=== PATIENT | male | born 1995 | race African-American/Black ===

== ENCOUNTER 2018-10-12 19:32 | Emergency (ER) | payer MEDICAID ==
[~2018-10-12] VITALS: Ht 175.3 cm; Wt 89.4 kg
[2018-10-12 19:34] VITALS: BP 140/83
[2018-10-12] MEDS ORDERED: AZITHROMYCIN 250 MG TABLET PO ONE (20:00)
[2018-10-12] MEDS ORDERED: CEFTRIAXONE 250 MG IM ONE (20:00)
[2018-10-12] MEDS ORDERED: LIDOCAINE-MPF 1%, 2ML ONE (20:16)
[2018-10-12] MEDS ORDERED: AZITHROMYCIN 250 MG TABLET ONE (20:16)
[2018-10-12] MEDS ORDERED: CEFTRIAXONE 250 MG ONE (20:16)
== END 2018-10-12 20:37 | disposition home or self-care (01) ==
LOC: ED 20:31
DX: A54.01 Gonococcal cystitis and urethritis, unspecified (principal); A54.9 Gonococcal infection, unspecified
CPT/HCPCS: 96372; 99283; J0696

== ENCOUNTER 2019-02-24 08:43 | Emergency (ER) | payer MEDICAID ==
[~2019-02-24] VITALS: Ht 177.8 cm; Wt 88.0 kg
--- NOTE | 2019-02-24 08:57 | NUR ---
Pt presents for subjective fever and chills x 2 weeks, worse last night. Pt has LBP and cough. NAD at this time.
[2019-02-24 09:42] LABS: MEAN CORPUSCULAR HEMOGLOBIN 26.1 pg (27.5-34.5); MEAN CORPUSCULAR HGB CONC 32.6 g/dL (33.2-36.2); MEAN CORPUSCULAR VOLUME 79.9 fL (81-97); MEAN PLATELET VOLUME 8.5 fL (7.4-10.4); PLATELET COUNT 244 x10^3/uL (130-400); RED BLOOD COUNT 5.67 x10^6/uL (4.38-5.82); RED CELL DISTRIBUTION WIDTH 14.1 % (9.4-14.8)
[2019-02-24 09:59] LABS: ALBUMIN 3.6 g/dL (3.4-5.0); ANION GAP 9 mmol/L (5-15); CALCIUM 8.2 mg/dL (8.5-10.1); CHLORIDE 108 mmol/L (98-107)
[2019-02-24 10:00] LABS: CULTURE INDICATED? YES; MICROSCOPIC INDICATED
[2019-02-24 10:09] LABS: RAPID INFLUENZA A Negative (Negative); RAPID INFLUENZA B Negative (Negative)
[2019-02-24 10:13] LABS: MD YES
[2019-02-24 10:15] LABS: BAND#(MANUAL) 1.29 x10^3/uL; BANDS%(MANUAL) 7 % (0-7); LYMPH#(MANUAL) 1.66 x10^3/uL (1-3.4); LYMPHS% (MANUAL) 9 % (22-44); MONOS#(MANUAL) 1.29 x10^3/uL (0.3-2.7); MONOS% (MANUAL) 7 % (2-9); SEG#(MANUAL) 14.17 x10^3/uL (1.8-6.8); SEGS% (MANUAL) 77 % (42-75)
[2019-02-24 10:16] LABS: <PLATELET ESTIMATE> ADEQUATE; <PLT MORPHOLOGY> NORMAL PLT MORPH; <RBC MORPHOLOGY> NORMAL
[2019-02-24] MEDS ORDERED: CEFTRIAXONE 1,000 MG IM ONE (10:30)
[2019-02-24] MEDS ORDERED: CEFTRIAXONE 1,000 MG ONE (10:43)
[2019-02-24] MEDS ORDERED: LIDOCAINE-MPF 1%, 5ML ONE (10:43)
[2019-02-24 10:51] VITALS: BP 125/59
== END 2019-02-24 11:16 | disposition home or self-care (01) ==
LOC: ED 11:11
DX: N30.01 Acute cystitis with hematuria (principal)
CPT/HCPCS: 36415; 71046; 80048; 81001; 82040; 85025; 87086; 87400; 96372; 99284; J0696

== ENCOUNTER 2020-12-16 15:13 | Emergency (ER) | payer MEDICAID ==
[~2020-12-16] VITALS: Ht 175.3 cm; Wt 84.5 kg
--- NOTE | 2020-12-16 15:34 | NUR ---
JONATHAN HOLT AT BS NOW.
--- NOTE | 2020-12-16 15:35 | NUR ---
PT AMBULATED TO BR WITHOUT DIFFICULTY. INSTRUCTED ON CLEAN CATCH URINE SAMPLE.
[2020-12-16] MEDS ORDERED: KETOROLAC 30 MG/1 ML ONE (15:53)
[2020-12-16] MEDS ORDERED: KETOROLAC 30 MG/1 ML IM ONE (16:00)
[2020-12-16 16:15] LABS: MICROSCOPIC INDICATED
--- NOTE | 2020-12-16 16:26 | NUR ---
TASK RN: PT MEDICATED PER MAR.
[2020-12-16 16:46] LABS: BASOPHILS % (AUTO) 1 % (0-1); EOSINOPHILS % (AUTO) 1 % (1-7); LYMPHOCYTES % (AUTO) 17 % (22-44); MEAN CORPUSCULAR HEMOGLOBIN 27.6 pg (27.5-34.5); MEAN CORPUSCULAR HGB CONC 33.7 g/dL (33.2-36.2); MEAN PLATELET VOLUME 8.4 fL (7.4-10.4); MONOCYTES % (AUTO) 8 % (2-9); NEUTROPHILS % (AUTO) 75 % (42-75); PLATELET COUNT 217 x10^3/uL (130-400); RED BLOOD COUNT 5.72 x10^6/uL (4.38-5.82); RED CELL DISTRIBUTION WIDTH 14.3 % (9.4-14.8)
[2020-12-16 16:52] LABS: MD NO
[2020-12-16 16:56] LABS: ANION GAP 4 mmol/L (5-15); CALCIUM 8.9 mg/dL (8.5-10.1); CHLORIDE 108 mmol/L (98-107); CREATININE 1.21 mg/dL (0.7-1.3)
--- NOTE | 2020-12-16 16:58 | NUR ---
JONATHAN HOLT AT FOR RECHECK.
[2020-12-16] MEDS ORDERED: CEFTRIAXONE 1,000 MG IM ONE (17:30)
[2020-12-16] MEDS ORDERED: AZITHROMYCIN 500 MG TABLET PO ONE (17:30)
[2020-12-16] MEDS ORDERED: AZITHROMYCIN 500 MG TABLET ONE (17:31)
[2020-12-16] MEDS ORDERED: CEFTRIAXONE 1,000 MG ONE (17:31)
[2020-12-16] MEDS ORDERED: LIDOCAINE-MPF 1%, 5ML ONE (17:32)
[2020-12-16 17:35] VITALS: BP 120/75
== END 2020-12-16 17:46 | disposition home or self-care (01) ==
LOC: ED 17:00
DX: N34.2 Other urethritis (principal); R10.9 Unspecified abdominal pain; F12.10 Cannabis abuse, uncomplicated; M54.5 Low back pain; F17.210 Nicotine dependence, cigarettes, uncomplicated; Z72.9 Problem related to lifestyle, unspecified
CPT/HCPCS: 36415; 80048; 81001; 85025; 87491; 87591; 96372; 99284; 99406; J0696; J1885

== ENCOUNTER 2021-02-08 20:27 | Emergency (ER) | payer MEDICAID ==
[~2021-02-08] VITALS: Ht 175.3 cm; Wt 87.4 kg
[2021-02-08 20:29] VITALS: BP 129/82
[2021-02-08] MEDS ORDERED: KETOROLAC 30 MG/1 ML IM ONE (21:00)
[2021-02-08] MEDS ORDERED: KETOROLAC 30 MG/1 ML ONE (21:00)
--- NOTE | 2021-02-08 21:30 | NUR ---
Patient given discharge instructions and they have confirmed that they understand the instructions. Patient ambulatory with steady gait.
== END 2021-02-08 21:32 | disposition home or self-care (01) ==
LOC: ED 21:15
DX: G89.11 Acute pain due to trauma (principal); M25.511 Pain in right shoulder; F17.210 Nicotine dependence, cigarettes, uncomplicated
CPT/HCPCS: 29240; 73030; 96372; 99283; 99406; J1885